=== PATIENT | female | born 1940 | race Two or more races ===

== ENCOUNTER 2017-07-09 01:17 | Inpatient (IN) | payer MEDICAID, OTHER ==
[~2017-07-09] VITALS: Ht 170.2 cm; Wt 93.4 kg
[2017-07-09] MEDS ORDERED: ENOX40DI SQ (01:32)
[2017-07-09] MEDS ORDERED: MODA100T14 PO (01:32)
[2017-07-09] MEDS ORDERED: LISI10TA5 GT (01:32)
[2017-07-09] MEDS ORDERED: NUT.237L30 GT (01:32)
[2017-07-09] MEDS ORDERED: METO25TA20 GT (01:32)
[2017-07-09] MEDS ORDERED: LEVE500T9 GT (01:32)
[2017-07-09] MEDS ORDERED: CRAN3875 GT (01:32)
--- NOTE | 2017-07-09 01:34 | NUR ---
to bed 3 bib paramedics c/o low o2 sat. deminished breath sounds bilaterally on auscultation. pt obtunded, no acute distress noted, resp even and unlabored. skin hot to touch. place pt on cardiac monitoring, continuous pox. o2 sat 91% on ra, place pt on nonrebreather mask 15L. er md at bedside to eval pt.
--- NOTE | 2017-07-09 01:35 | NUR ---
started on the RAC 18g, blood drawn and sent to lab.
[2017-07-09] MEDS ORDERED: ACETAMINOPHEN 650 MG/20.3 ML UDC ONE (01:38)
[2017-07-09 01:54] LABS: BASOPHILS % (AUTO) 0.2 % (0.0-2.0); EOSINOPHILS % (AUTO) 0.3 % (0.0-6.0); HEMATOCRIT 37 % (33-45); HEMOGLOBIN 12.6 g/dL (11.5-14.8); LYMPHOCYTES # (AUTO) 1.1 /CMM (0.8-4.8); LYMPHOCYTES % (AUTO) 11.2 % (20.0-44.0); MEAN CORPUSCULAR HEMOGLOBIN 32 PG (26.0-33.0); MEAN CORPUSCULAR HGB CONC 34 g/dl (31.0-36.0); MEAN CORPUSCULAR VOLUME 96 fL (82-100); MONOCYTES # (AUTO) 0.9 /CMM (0.1-1.30); MONOCYTES % (AUTO) 9.2 % (2.0-12.0); NEUTROPHILS # (AUTO) 7.7 /CMM (1.8-8.9); NEUTROPHILS % (AUTO) 79.1 % (43.0-81.0); PLATELET COUNT (AUTO) 266 /CMM (150-450); RDW COEFFICIENT OF VARIATION 14.9 (11.5-15.0); RED BLOOD CELL COUNT(AUTO) 3.89 MIL/uL (4.0-5.2); WHITE BLOOD COUNT (AUTO) 9.8 K/uL (4.3-11.0)
[2017-07-09 02:00] LABS: INR 0.95 (0.87-1.13); PROTHROMBIN TIME 9.9 SECS (9.5-12.7)
[2017-07-09] MEDS ORDERED: IV NS 0.9% 1,000 ML BAG IV ONE ×2 (02:00)
[2017-07-09] MEDS ORDERED: ACETAMINOPHEN 325 MG TABLET PO ONE (02:00)
[2017-07-09 02:04] LABS: CALCIUM, SERUM 9.3 mg/dL (8.5-10.1); CARBON DIOXIDE 29 mmol/L (21-32); CHLORIDE 104 mmol/L (98-107); CREATININE 0.8 mg/dL (0.6-1.3); GLUCOSE 179 mg/dL (74-106); SODIUM SERUM 137 mmol/L (136-145); UREA NITROGEN, BLOOD 36 mg/dL (7-18)
[2017-07-09 02:07] LABS: TROPONIN I < 0.017 ng/mL (0.00-0.056)
[2017-07-09 02:17] LABS: ALANINE AMINOTRANSFERASE 29 U/L (12-78); ALBUMIN 2.8 g/dL (3.4-5.0); ALKALINE PHOSPHATASE 154 U/L (46-116); ASPARTATE AMINOTRANSFERASE 29 U/L (15-37); B-TYPE NATRIURETIC PEPTIDE 301 PG/ML (0-125); BILIRUBIN,DIRECT 0.1 mg/dL (0.0-0.2); BILIRUBIN,TOTAL 0.3 mg/dL (0.2-1.0); TOTAL PROTEIN, SERUM 7.9 g/dL (6.4-8.2)
[2017-07-09 02:17] LABS: APPEARANCE,URINE SL CLOUDY (CLEAR); BILIRUBIN,URINE NEGATIVE (NEGATIVE); BLOOD, URINE TRACE-INTA Ery/uL (NEGATIVE); COLOR,URINE YELLOW (YELLOW); KETONES,URINE NEGATIVE (NEGATIVE); LEUKOCYTE ESTERASE ,URINE TRACE (NEGATIVE); NITRITE, URINE NEGATIVE (NEGATIVE); PH,URINE 6.5 (5.0-8.0); PROTEIN,URINE NEGATIVE (NEGATIVE); UGLUCOSE NEGATIVE (NEGATIVE)
[2017-07-09 02:22] LABS: BACTERIA,URINE None seen /HPF (None Seen); SQUAMOUS EPITHELIAL CELL,UR Moderate /HPF (None Seen); WBC,URINE 0-2 /HPF (0-3)
[2017-07-09] MEDS ORDERED: OSELTAMIVIR PHOSPHATE 75 MG CAPSULE GT ONE (02:30)
[2017-07-09] MEDS ORDERED: OSELTAMIVIR PHOSPHATE 75 MG CAPSULE ONE (02:42)
--- NOTE | 2017-07-09 02:56 | NUR ---
pt family members at bedside.
[2017-07-09] MEDS ORDERED: ACETAMINOPHEN 650 MG/20.3 ML UDC PO ONE (03:00)
[2017-07-09] MEDS ORDERED: ALBUTEROL FS 2.5 MG/0.5 ML VIAL.NEB NEB ONE (03:00)
[2017-07-09] MEDS ORDERED: ALBUTEROL FS 2.5 MG/0.5 ML VIAL.NEB ONE (03:11)
--- NOTE | 2017-07-09 03:11 | NUR ---
rt at bedside for hhn tx.
--- NOTE | 2017-07-09 05:20 | NUR ---
place pt on simple mask @6L. will continue to monitor pt closely.
--- NOTE | 2017-07-09 06:03 | NUR ---
report called to tele 1 rn. will transport pt via acls protocol.
[2017-07-09 07:53] LABS: BASOPHILS % (AUTO) 0.2 % (0.0-2.0); EOSINOPHILS % (AUTO) 0.4 % (0.0-6.0); HEMATOCRIT 34 % (33-45); HEMOGLOBIN 11.6 g/dL (11.5-14.8); LYMPHOCYTES # (AUTO) 1.8 /CMM (0.8-4.8); LYMPHOCYTES % (AUTO) 17.6 % (20.0-44.0); MEAN CORPUSCULAR HEMOGLOBIN 33 PG (26.0-33.0); MEAN CORPUSCULAR HGB CONC 34 g/dl (31.0-36.0); MEAN CORPUSCULAR VOLUME 96 fL (82-100); MONOCYTES # (AUTO) 1.1 /CMM (0.1-1.30); MONOCYTES % (AUTO) 10.4 % (2.0-12.0); NEUTROPHILS # (AUTO) 7.2 /CMM (1.8-8.9); NEUTROPHILS % (AUTO) 71.4 % (43.0-81.0); PLATELET COUNT (AUTO) 235 /CMM (150-450); RDW COEFFICIENT OF VARIATION 14.6 (11.5-15.0); RED BLOOD CELL COUNT(AUTO) 3.56 MIL/uL (4.0-5.2); WHITE BLOOD COUNT (AUTO) 10.1 K/uL (4.3-11.0)
[2017-07-09 08:00] VITALS: BP 99/61
--- NOTE | 2017-07-09 08:00 | NUR ---
VANESSA RN OTE PATINT IN BED . OBTUNDED , ON TELE MONITOR SR 80, ON 5L SIMPLE MASK ,WITH RIVER CATH TO GRAVITY WITH YELLOW COLOR COLOR , ON NPO STATUS AT THIS TIME, RT AC HL INTACT , BED IN LOWEST AND LOCKED POSITION, WILL CONT TO MONITOR CLOSELY
[2017-07-09 08:39] LABS: CALCIUM, SERUM 8.5 mg/dL (8.5-10.1); CARBON DIOXIDE 25 mmol/L (21-32); CHLORIDE 109 mmol/L (98-107); CREATININE 0.7 mg/dL (0.6-1.3); GLUCOSE 153 mg/dL (74-106); POTASSIUM 4.5 mmol/L (3.5-5.1); SODIUM SERUM 141 mmol/L (136-145); UREA NITROGEN, BLOOD 31 mg/dL (7-18)
[2017-07-09] MEDS ORDERED: IV NS 0.9% 1,000 ML IV PRN (09:00)
[2017-07-09] MEDS ORDERED: IV NS 0.9% 1,000 ML BAG IV PRN (09:00)
[2017-07-09] MEDS ORDERED: ACETAMINOPHEN 650 MG/20.3 ML UDC GT PRN (09:00)
[2017-07-09] MEDS: OSELTAMIVIR PHOSPHATE 75 MG CAPSULE PO SCH ×2 (09:27→16:16)
[2017-07-09] MEDS: PIPERACILLIN /TAZOBACTAM 3.375 G in IV D5W 50 ML IV SCH ×2 (09:34→17:18)
--- NOTE | 2017-07-09 09:35 | NUR ---
VANESSA RN NOTE SPOKE WITH DR VERA NOTIFIED THAT PATIENT IS OBTUNDED AND OK TO START GLUCERNA VIA G TUBE
[2017-07-09] MEDS ORDERED: GLYTROL 1,000 ML BAG GT PRN (10:00)
[2017-07-09] MEDS ORDERED: DEXTROSE 50%-WATER 50 ML DISP.SYRIN IV PRN (10:00)
--- NOTE | 2017-07-09 10:08 | NUR ---
VANESSA RN NOTE PER DR VERA NEED TO TRANSFER TO [facility]
[2017-07-09 12:00] VITALS: BP 108/68
[2017-07-09] MEDS: INSULIN REGULAR, HUMAN 100 UNIT/ML 3 ML VIAL SQ PRN ×2 (12:00→17:21)
[2017-07-09] MEDS: BLOOD SUGAR DIAGNOSTIC 1 EACH STRIP IN SCH ×2 (12:01→17:23)
--- NOTE | 2017-07-09 12:41 | NUR ---
VANESSA RN NOTE FAMILY SPOKE WITH CASE MANGER ABOUT [facility] WILL F\U FOR TRANSFER
[2017-07-09] MEDS ORDERED: VANCOMYCIN 1 GM in IV D5W 250 ML IV ONE (14:00)
[2017-07-09 16:00] VITALS: BP 113/83
--- NOTE | 2017-07-09 17:23 | NUR ---
VANESSA RN NOTE [facility]Y LABORATORY TECHNICIAN AT BEDSIDE TALKING WITH PATIENT ABOUT TRANSFER TO [facility]
--- NOTE | 2017-07-09 18:29 | NUR ---
VANESSA RN NOTE ALL NEEDS ATTENDED ,FAMILY AT BEDSIDE CONT ON GTUBE FEEDING ORDERED ,KEEP HOB ELEVATED AT ALL TIME WILL CONT TO MONITOR CLOSELY
--- NOTE | 2017-07-09 19:30 | NUR ---
VANESSA RN INITIAL NOTES RECEIVED PATIENT, NON-VERBAL, RESPONSIVE TO PAIN. NO S/S OF PAIN OR DISCOMFORT. NO RESPIRATORY DISTRESS NOTED, ON 5LPMO2 VIA MASK. ON TELE MONITOR SR 79. SKIN WARM AND DRY TO TOUCH. WITH F/C PATENT AND INTACT, DRAINING BY GRAVITY. WITH GT PATENT AND INTACT, GT IN PLACE. WITH GTF AT 45ML/HR, NO RESIDUAL NOTED. SET RATE AT GOAL RATE OF 55ML/HR. DROPLET PRECAUTIONS OBSERVED. DAUGHTER AT BEDSIDE. EDUCATED ON ISOLATION, VERBALIZED UNDERSTANDING. HOB ELEVATED. SIDE RAILS UP AND LOCKED. BED KEPT AT LOWEST POSITION. CALL LIGHT KEPT WITHIN EASY REACH. WILL CONTINUE TO MONITOR.
[2017-07-09 20:00] VITALS: BP 114/71
--- NOTE | 2017-07-09 20:40 | NUR ---
RECEIVED A CALL FROM CUTTING PRESSMAN ADOLPH, WITH INFORMATION REGARDING TRANSFERRING PATIENT TONIGHT TO [facility], WITH BED AVAILABLE AND READY FOR PATIENT. PER ADOLPH TRANSPORTATION WILL CYCLE CONSULTANT PATIENT BY [id number].
--- NOTE | 2017-07-09 20:55 | NUR ---
GAVE REPORT TO NURSE GARCES FROM [facility].
--- NOTE | 2017-07-09 21:30 | NUR ---
VANESSA RN CLOSING NOTES PATIENT IN STABLE CONDITION. TRANSPORTATION AND FAMILY AT BEDSIDE. PATIENT TO BE TRANSFERRED TO [facility]. NO RESPIRATORY DISTRESS NOTED. TOLERATING GTF. GT IN PLACE. F/C PATENT AND INTACT, DRAINING BY GRAVITY. PATIENT WITH NO BELONGINGS. ID BAND REMOVED. PERIPHERAL LINE LEFT IN PLACE, PATENT AND INTACT.
[2017-07-10] MEDS ORDERED: VANCOMYCIN 0.75 GM in IV D5W 250 ML IV SCH (02:00)
== END 2017-07-09 21:30 | disposition short-term general hospital (02) | DRG 139 ==
LOC: ER 01:23 → TELE-TD 06:09
PROVIDERS: ADMIT Internal Medicine; ATTEND Internal Medicine
DX: J10.08 Influenza due to other identified influenza virus with other specified pneumonia (principal); J96.91 Respiratory failure, unspecified with hypoxia; I95.9 Hypotension, unspecified; I69.351 Hemiplegia and hemiparesis following cerebral infarction affecting right dominant side; G40.909 Epilepsy, unspecified, not intractable, without status epilepticus; E11.9 Type 2 diabetes mellitus without complications; R13.10 Dysphagia, unspecified; Z93.1 Gastrostomy status; I69.820 Aphasia following other cerebrovascular disease; I10 Essential (primary) hypertension; Z79.899 Other long term (current) drug therapy; J69.0 Pneumonitis due to inhalation of food and vomit
CPT/HCPCS: 36415; 71045-TC; 80048-TC; 80076-TC; 81000-TC; 82962-TC; 83605-TC; 83880; 84484-TC; 85025-TC; 85730-TC; 87040-TC; 87081-TC; 87086-TC; 87186-TC; 87400; A4606; J1815; J2543; J7030; J7060; Z7610